=== PATIENT | male | born 1950 | race Caucasian/White ===

== ENCOUNTER 2016-09-30 10:37 | Emergency (ER) | payer BC ==
[~2016-09-30] VITALS: Ht 188 cm; Wt 119.8 kg
[~2016-09-30 10:37] MED LIST: ASPI81TA28 PO; ATOR80TA PO; GLYB5TAB8 PO; JNV100 PO; LISI40TA PO; METF-384 PO
[2016-09-30 10:40] VITALS: TEMP 36.7; Ht 188 cm; Wt 119.8 kg
[2016-09-30] MEDS ORDERED: SODIUM CHLORIDE 0.9% 1000ML 1,000 ML IV STA (11:04)
--- NOTE | 2016-09-30 11:22 | EMERGENCY ROOM VISIT NOTE ---
History First contact with patient: 10:54 Chief Complaint: RECTAL BLEEDING Stated Complaint: BLOOD IN STOOL Nursing Triage Summary: Pt reports seeing bright red blood in stool beginning last evening. Was unable to see PCP today, presents to ER. History of Present Illness The patient is a 65 year old male who presents to the Emergency Room with complaints of rectal bleeding. The patient states that last night he noticed bright red blood in his stool. He states that he felt like he had to have diarrhea. He does not have any pain or cramping. He states today he went to the bathroom several times and noticed red in the water. The patient states that he has had a few more bowel movements today and they all were bloody. He went to his family doctor's office that they could not see him today. He came to the emergency department for evaluation. The patient takes an aspirin but no other anticoagulants. The patient denies any pain. He denies any fevers or chills. He denies chest pain or trouble breathing. He denies nausea or vomiting. He denies any hematemesis. He denies ever having colonoscopy. He denies any history of rectal or gastrointestinal bleeding. He is a diabetic. He has a pacemaker. He also has chronic kidney disease. Review of Systems A 10 system review of systems was completed with positives and pertinent negatives listed in the HPI. Past Medical/Surgical History Medical Problems: (1) CKD (chronic kidney disease) (2) Diabetes (3) Hyperlipidemia (4) Hypertension (5) No pertinent past medical history (6) Pacemaker Family History Patient reports no known family medical history. Social History Smoking Status: Former Smoker Drug Use: none Marital Status: Occupation Status: employed Current/Historical Medications Scheduled Amlodipine (Norvasc), 10 MG PO DAILY Aspirin (Aspirin Ec), 81 MG PO DAILY Carvedilol (Coreg), 12.5 MG PO BIDM Furosemide (Lasix), 20 MG PO DAILY Insulin Glargine (Lantus Solostar), 40 SC QAM Lisinopril (Zestril), 40 MG PO DAILY Repaglinide (Prandin), 2 MG PO AC Sitagliptin (Januvia), 100 MG PO DAILY Allergies Coded Allergies: Procaine (Verified Allergy, Unknown, HIVES, 11/14/14) Sulfa Antibiotics (Verified Allergy, Unknown, HIVES, 6/2/15) Physical Exam Vital Signs Date Time Temp Pulse Resp B/P Pulse Ox O2 Delivery O2 Flow Rate FiO2 09/30/16 12:30 77 18 132/82 95 09/30/16 12:02 64 22 142/87 96 Room Air 09/30/16 11:09 60 16 163/89 96 Room Air 09/30/16 10:40 36.7 92 18 138/84 95 Room Air Physical Exam VITALS: Vitals are noted on the nurse's note and reviewed by myself. Vital signs stable. The patient is afebrile. He is not tachycardic, tachypneic or hypotensive. GENERAL: This is a 5-year-old male, in no acute distress, nondiaphoretic, well- developed well-nourished. SKIN: The skin was without rashes, erythema, edema, or bruising. There is no tenting of the skin. Capillary reflex less than 2 seconds. HEAD: Normocephalic atraumatic. EARS: The external ears are normal in appearance. EYES: Pupils equal round and reactive to light and accommodation. Conjunctivae without injection, sclerae without icterus. Extraocular movements intact. NOSE: Patent, turbinates without inflammation or discharge. No sinus tenderness. MOUTH: Mucous membranes moist. Tonsils are not enlarged. Pharynx without erythema or exudate. Uvula midline. Airway patent. Tongue does not deviate. NECK: Supple without nuchal rigidity. No JVD. HEART: Regular rate and rhythm without murmurs gallops or rubs. LUNGS: Clear to auscultation bilaterally without wheezes, rales or rhonchi. No retractions or accessory muscle use. ABDOMEN: Positive bowel sounds x 4. Soft, nontender, without masses or organomegaly. RECTAL: There is a scar noted in the area of the gluteal cleft. The patient reports a history of pressure ulcer. There are no obvious external hemorrhoids. The stool is brown but guaiac positive. MUSCULOSKELETAL: No muscle atrophy, erythema, or edema noted. Full range of motion in all extremities. Normal gait. Strength 5/5 throughout. NEURO: Patient was alert and oriented to person place and time. No focal neurological deficits. Medical Decision & Procedures Laboratory Results 09/30/16 11:05 Red Blood Count 4.65, Mean Corpuscular Volume 91.4, Mean Corpuscular Hemoglobin 30.1, Mean Corpuscular Hemoglobin Concent 32.9, Mean Platelet Volume 9.9, Neutrophils (%) (Auto) 72.1, Lymphocytes (%) (Auto) 16.9, Monocytes (%) (Auto) 7.6, Eosinophils (%) (Auto) 2.0, Basophils (%) (Auto) 0.6, Neutrophils # (Auto) 5.66, Lymphocytes # (Auto) 1.33, Monocytes # (Auto) 0.60, Eosinophils # (Auto) 0.16, Basophils # (Auto) 0.05 09/30/16 11:05 Test 09/30/16 11:05 09/30/16 12:00 White Blood Count 7.86 K/uL (4.8-10.8) Red Blood Count 4.65 M/uL (4.7-6.1) Hemoglobin 14.0 g/dL (14.0-18.0) Hematocrit 42.5 % (42-52) Mean Corpuscular Volume 91.4 fL (80-100) Mean Corpuscular Hemoglobin 30.1 pg (25-34) Mean Corpuscular Hemoglobin Concent 32.9 g/dl (32-36) Platelet Count 212 K/uL (130-400) Mean Platelet Volume 9.9 fL (7.4-10.4) Neutrophils (%) (Auto) 72.1 % Lymphocytes (%) (Auto) 16.9 % Monocytes (%) (Auto) 7.6 % Eosinophils (%) (Auto) 2.0 % Basophils (%) (Auto) 0.6 % Neutrophils # (Auto) 5.66 K/uL (1.4-6.5) Lymphocytes # (Auto) 1.33 K/uL (1.2-3.4) Monocytes # (Auto) 0.60 K/uL (0.11-0.59) Eosinophils # (Auto) 0.16 K/uL (0-0.5) Basophils # (Auto) 0.05 K/uL (0-0.2) RDW Standard Deviation 43.7 fL (36.4-46.3) RDW Coefficient of Variation 13.3 % (11.5-14.5) Immature Granulocyte % (Auto) 0.8 % Immature Granulocyte # (Auto) 0.06 K/uL (0.00-0.02) Prothrombin Time 10.9 SECONDS (9.0-12.0) Prothromb Time International Ratio 1.0 (0.9-1.1) Activated Partial Thromboplast Time 25.6 SECONDS (21.0-31.0) Partial Thromboplastin Ratio 1.0 Anion Gap 4.0 mmol/L (3-11) Est Creatinine Clear Calc Drug Dose 64.2 ml/min Estimated GFR () 52.0 Estimated GFR (Non- 44.9 BUN/Creatinine Ratio 22.2 (10-20) Calcium Level 9.3 mg/dl (8.5-10.1) Total Bilirubin 1.0 mg/dl (0.2-1) Aspartate Amino Transf (AST/SGOT) 22 U/L (15-37) Alanine Aminotransferase (ALT/SGPT) 26 U/L (12-78) Alkaline Phosphatase 70 U/L (45-117) Total Protein 8.5 gm/dl (6.4-8.2) Albumin 3.8 gm/dl (3.4-5.0) Globulin 4.7 gm/dl (2.5-4.0) Albumin/Globulin Ratio 0.8 (0.9-2) Lipase 156 U/L (73-393) Urine Color YELLOW Urine Appearance CLEAR (CLEAR) Urine pH 5.0 (4.5-7.5) Urine Specific [place] 1.009 (1.000-1.030) Urine Protein 1+ (NEG) Urine Glucose (UA) NEG (NEG) Urine Ketones NEG (NEG) Urine Occult Blood TRACE (NEG) Urine Nitrite NEG (NEG) Urine Bilirubin NEG (NEG) Urine Urobilinogen NEG (NEG) Urine Leukocyte Esterase NEG (NEG) Urine WBC (Auto) 0 /hpf (0-5) Urine RBC (Auto) 0-4 /hpf (0-4) Urine Hyaline Casts (Auto) 1-5 /lpf (0-5) Urine Epithelial Cells (Auto) 0-5 /lpf (0-5) Urine Bacteria (Auto) NEG (NEG) Medications Administered Medications (Trade) Dose Ordered Sig/Ralph Route Start Time Stop Time Status Last Admin Dose Admin Sodium Chloride (Nss 1000ml) 1,000 ml @ 125 mls/hr Q8H STAT IV 09/30/16 11:04 09/30/16 12:43 DC 09/30/16 11:10 125 MLS/HR ED Course The patient was seen and examined. Previous visits were reviewed. The patient does not have fever or leukocytosis. He does not have any significant electrolyte abnormalities. His BUN/creatinine creatinine are similar compared to previous. He does have a history of chronic kidney disease. Lipase was not elevated. INR was 1.0. Urinalysis was negative. The patient was gently hydrated with normal saline The patient presents to the emergency department with bright red rectal bleeding. The stool is guaiac positive. The patient has had bleeding since last night. He is hemodynamically stable. H&H is stable. He is not hypotensive. He does not have any complaints of pain and no abdominal tenderness on examination. The patient should follow-up with his family doctor for repeat H&H and referral to gastroenterology for probable colonoscopy. He should return with any lightheadedness, dizziness, chest pain, shortness of breath, abdominal pain or worsening bleeding. The case was discussed with Dr. He who agrees with the assessment and treatment plan Medical Decision DIFFERENTIAL DIAGNOSIS: Hepatitis, cholecystitis, cholangitis, biliary colic, pancreatitis, pneumonia, subdiaphragmatic abscess, appendicitis, inguinal hernia , nephrolithiasis, inflammatory bowel disease, mesenteric adenitis, peptic ulcer disease, GERD, gastritis, pancreatitis, myocardial infarction, pericarditis, ruptured aortic aneurysm, appendicitis, gastroenteritis, bowel obstruction, splenic infarct, diverticulitis, mesenteric ischemia, metabolic, peritonitis, among others. Impression Primary Impression: Rectal bleeding Departure Information Dispostion Home / Self-Care Condition GOOD Referrals Bill Alvarez M.D. (PCP) Laurel Hernandez M.D. Patient Instructions Bleeding Rectal, My [email or web address] Additional Instructions Contact your family doctor for a follow up appointment in 24-48 hours. You will likely need an outpatient colonoscopy Return with chest pain, trouble breathing, abdominal pain, lightheadedness or generalized worsening symptoms Stop the aspirin for 3 days
[2016-09-30 11:26] LABS: BASO % 0.6 %; BASO ABS # 0.05 K/uL (0-0.2); COMPLETE YES; HEMATOCRIT 42.5 % (42-52); IG% 0.8 %; LYMPH % 16.9 %; LYMPH ABS # 1.33 K/uL (1.2-3.4); MEAN CELL VOLUME 91.4 fL (80-100); MEAN CORPUSCULAR HEMOGLOBIN 30.1 pg (25-34); MEAN CORPUSCULAR HGB CONC 32.9 g/dl (32-36); MEAN PLATELET VOLUME 9.9 fL (7.4-10.4); MONO % 7.6 %; NEUT % 72.1 %; PLATELET COUNT 212 K/uL (130-400); RED BLOOD COUNT 4.65 M/uL (4.7-6.1); WHITE BLOOD COUNT 7.86 K/uL (4.8-10.8)
[2016-09-30] MEDS ORDERED: FURO-85 PO (11:31)
[2016-09-30] MEDS ORDERED: INSDGIPEN SC (11:31)
[2016-09-30] MEDS ORDERED: REPA2TAB12 PO (11:31)
[2016-09-30] MEDS ORDERED: AMLO-114 PO (11:31)
[2016-09-30] MEDS ORDERED: CARV12.5 PO (11:31)
[2016-09-30 11:35] LABS: PROTHROMBIN TIME (PATIENT) 10.9 SECONDS (9.0-12.0)
[2016-09-30 11:50] LABS: BUN/CREATININE RATIO 22.2 (10-20); CALCIUM 9.3 mg/dl (8.5-10.1); CREATININE 1.6 mg/dl (0.60-1.40); POTASSIUM 4.9 mmol/L (3.5-5.1)
[2016-09-30 11:53] LABS: ALB/GLOB RATIO 0.8 (0.9-2)
[2016-09-30 12:20] LABS: URINE APPEARANCE CLEAR (CLEAR); URINE BILIRUBIN NEG (NEG); URINE COLOR YELLOW; URINE EPITHELIAL CELL AUTO 0-5 /lpf (0-5); URINE NITRITE NEG (NEG); URINE SPECIFIC GRAVITY 1.009 (1.000-1.030); UROBILINOGEN NEG (NEG); ZZUR CULT IF INDIC CLEAN CATCH NO
[2016-09-30 12:30] VITALS: BP 132/82; PULSE 77; O2SAT 95
[2016-09-30 12:30] LABS: MANUAL MICROSCOPIC REQUIRED? NO; REVIEW REQ? NO
[2016-10-08] MEDS ORDERED: INSDGIPEN SC (08:13)
[2016-10-08] MEDS ORDERED: LISI40TA PO (08:13)
[2016-10-08] MEDS ORDERED: SITA100T3 PO (08:13)
[2016-10-08] MEDS ORDERED: AMLO-114 PO (08:13)
[2016-10-08] MEDS ORDERED: CARV12.5 PO (08:13)
[2016-10-08] MEDS ORDERED: REPA2TAB12 PO (08:13)
[2016-10-08] MEDS ORDERED: ASPCH81X PO (08:13)
[2016-10-08] MEDS ORDERED: FURO-85 PO (08:13)
[2016-10-08] MEDS ORDERED: BRIM0.2S OPL (08:18)
== END 2016-09-30 12:31 | disposition home or self-care (01) ==
LOC: C.EDB 10:38 → C.EDC 12:31
DX: K62.5 Hemorrhage of anus and rectum (principal); N18.9 Chronic kidney disease, unspecified; E11.9 Type 2 diabetes mellitus without complications; E78.5 Hyperlipidemia, unspecified; I10 Essential (primary) hypertension; Z87.891 Personal history of nicotine dependence; Z79.82 Long term (current) use of aspirin; Z79.4 Long term (current) use of insulin

== ENCOUNTER → 2016-10-01 | Outpatient (CLI) | payer BC ==
[~2016-10-01] MED LIST changes: +AMLO-114 PO; +ASPCH81X PO; -ATOR80TA PO; +BRIM0.2S OPL; +CARV12.5 PO; +FURO-85 PO; -GLYB5TAB8 PO; +INSDGIPEN SC; -METF-384 PO; +REPA2TAB12 PO; +SITA100T3 PO
[2016-10-01 12:44] LABS: BASO % 0.6 %; BASO ABS # 0.04 K/uL (0-0.2); COMPLETE YES; EOS % 1.9 %; HEMATOCRIT 39.7 % (42-52); IG% 0.6 %; LYMPH ABS # 1.45 K/uL (1.2-3.4); MEAN CELL VOLUME 92.1 fL (80-100); MEAN CORPUSCULAR HEMOGLOBIN 30.9 pg (25-34); MEAN CORPUSCULAR HGB CONC 33.5 g/dl (32-36); MEAN PLATELET VOLUME 10.4 fL (7.4-10.4); MONO % 7.5 %; NEUT % 68.4 %; PLATELET COUNT 210 K/uL (130-400); RED BLOOD COUNT 4.31 M/uL (4.7-6.1); WHITE BLOOD COUNT 6.92 K/uL (4.8-10.8)
[2016-10-01 13:01] LABS: BLOOD UREA NITROGEN 39 mg/dl (7-18); GLUCOSE 151 mg/dl (70-99)
[2016-10-01 13:02] LABS: ALB/GLOB RATIO 0.8 (0.9-2); ALKALINE PHOSPHATASE 63 U/L (45-117); ALT/SGPT 25 U/L (12-78); AST/SGOT 19 U/L (15-37); BUN/CREATININE RATIO 21.8 (10-20); CALCIUM 9.5 mg/dl (8.5-10.1); CARBON DIOXIDE 29 mmol/L (21-32); CHLORIDE 106 mmol/L (98-107); CHOLESTEROL 259 mg/dl (0-200); POTASSIUM 4.6 mmol/L (3.5-5.1); SODIUM 141 mmol/L (136-145); TRIGLYCERIDES 187 mg/dl (0-150); VERY LOW DENSITY LIPOPROT CALC 37 mg/dl
[2016-10-01 13:11] LABS: HDL CHOLESTEROL 37 mg/dl; LDL CHOLESTEROL CALCULATED 185 mg/dl
[2016-10-01 14:14] LABS: ESTIMATED AVERAGE GLUCOSE 151 mg/dl; HA1C FLAG Normal (Normal)
[2016-10-01 14:45] LABS: RATIO 1069.2 mcg/mg (0-30.0)
== END | disposition home or self-care (01) ==
LOC: C.LABBFT 09:43
PROVIDERS: ATTEND Internal Medicine
DX: E11.29 Type 2 diabetes mellitus with other diabetic kidney complication (principal); K62.5 Hemorrhage of anus and rectum

== ENCOUNTER → 2016-10-15 | Day surgery (SDC) | payer BC ==
[2016-10-08 08:14] VITALS: Ht 188 cm; Wt 121.4 kg
[~2016-10-15] VITALS: Ht 188 cm; Wt 121.4 kg
[~2016-10-15] MED LIST changes: -ASPI81TA28 PO; +FENTANYL CITRATE INJ 50 MCG/1 ML 2 ML VIAL ONE; -JNV100 PO; +LIDOCAINE HCL 2% 2 ML VIAL (20MG/ML) ONE; +PROPOFOL IV EMULSION 10 MG/ML 20 ML VIAL IV ONE; +SODIUM CHLORIDE 0.9% 500ML 500 ML IV ONE
--- NOTE | 2016-10-15 08:16 | Endo History and Physical ---
History & Physical Date of Service: October 15, 2016. Chief Complaint: Referring Physician: History of Present Illness 65 yo presenting for colonoscopy due to recent hematochezia-no drop in Hb, no alarm symptoms, no hx of colon ca screening. Past Medical History Diabetes, Hypertension Past Surgical History Hx Cardiac Surgery: No Hx Internal Defibrillator: No Hx Pacemaker: Yes ([employer]) Hx Abdominal Surgery: Yes (KAPIL) Hx of Implantable Prosthesis: No Hx Post-Op Nausea and Vomiting: No Hx Cancer Surgery: No Hx Thoracic Surgery: No Hx Orthopedic: No Hx Urinary Tract Surgery: No Social History Smoking Status: Former Smoker Hx Substance Use: No Hx Alcohol Use: Yes (RARELY) Allergies Coded Allergies: Pioglitazone (Verified Allergy, Unknown, LIVER FUNCTION PROBLEMS, 10/08/16) Procaine (Verified Allergy, Unknown, HIVES, 11/14/14) Sulfa Antibiotics (Verified Allergy, Unknown, HIVES, 11/14/14) Current Medications Reported Home Medications Medications Dose Route/Sig Max Daily Dose Days Date Category Combigan (Brimonidine Tartrate-Timolol M) 1 Leola Leola 1 Drop OPL BID 10/08/16 Reported Aspirin Chewable (Aspirin) 81 Mg Chew 81 Mg PO QAM 10/08/16 Reported Lasix (Furosemide) 20 Mg Tab 20 Mg PO QAM 10/08/16 Reported Coreg (Carvedilol) 12.5 Mg Tab 12.5 Mg PO BID 10/08/16 Reported Norvasc (Amlodipine Besylate) 10 Mg Tab 10 Mg PO QAM 10/08/16 Reported Zestril (Lisinopril) 40 Mg Tab 40 Mg PO QAM 10/08/16 Reported Lantus Solostar (Insulin Glargine) 100 Unit/Ml Inj 40 Units SC QAM 10/08/16 Reported Januvia (Sitagliptin Phosphate) 100 Mg Tab 100 Mg PO QAM 10/08/16 Reported Prandin (Repaglinide) 2 Mg Tab 2 Mg PO AC 10/08/16 Reported Vital Signs Weight (Kilograms): 121.36 Height (Feet): 6 Height (Inches): 2 Physical Exam General Appearance: WD/WN, no apparent distress Respiratory/Chest: Respiratory effort: no dyspnea Auscultation: breath sounds normal, CTA except as noted, no wheezing Cardiovascular: Apical Impulse: not displaced Heart Auscultation: RRR, normal S1, normal S2 Abdomen: Bowel Sounds: normal Inspection & Palpation: soft, non-distended Assessment and Plan 65 yo presenting for colonoscopy for rectal bleeding
--- NOTE | 2016-10-15 08:55 | Discharge Instructions ---
Endoscopy Patient Instructions Date / Procedure(s) Performed October 15, 2016. Colonoscopy Allergy Information Coded Allergies: Pioglitazone (Verified Allergy, Unknown, LIVER FUNCTION PROBLEMS, 10/08/16) Procaine (Verified Allergy, Unknown, HIVES, 11/14/14) Sulfa Antibiotics (Verified Allergy, Unknown, HIVES, 11/14/14) Discharge Date / Findings October 15, 2016. Two polyps-both completely removed Poor preparation Diverticuli Internal Hemorrhoids Medication Instructions Stopped Medication(s): last dose ASA week ago Thursday Provider Instructions Activity Restrictions - No exercising or heavy lifting for 24 hours. - Do not drink alcohol the day of the procedure. - Do not drive a car or operate machinery until the day after the procedure. - Do not make any important decisions or sign important papers in 24 hours after the procedure. Following Day: - Return to full activity which may include returning to work/school. Diet Start your diet with liquids and light foods (jello, soup, juice, toast). Then eat your usual diet if not nauseated. Treatment For Common After Affects For mild abdominal pain, bloating, or excessive gas: - Rest - Eat lightly - Lie on right side Follow-Up Information Follow-up with Dr. Bill Alvarez as scheduled Anesthesia Information What You Should Know You have had a procedure that required some medicine to reduce anxiety and discomfort. This treatment is called moderate sedation. After receiving the treatment, you may be sleepy, but you will be able to breathe on your own. The effects of the treatment may last for several hours. Follow these instructions along with Activity/Diet recommendations noted above: * Do NOT do anything where dizziness or clumsiness would be dangerous. * Rest quietly at home today, then you can be up and about tomorrow. * Have a responsible person stay with you the rest of today. * You may have had an I.V. today. If so, you may take the dressing off later today. Recommendations Call your doctor if: * Trouble breathing * Continuous vomiting for more than 24 hours * Temperature above 101 degrees * Severe abdominal pain or bloating * Pain not relieved by pain medicine ordered * There is increased drainage or redness from any incision * A large amount of rectal bleeding greater than 2-3 tablespoons. (If you had a polyp/s removed or have hemorrhoids, a small amount of blood - from the rectum is to be expected.) * You have any unanswered questions or concerns. IN THE EVENT OF A SERIOUS EMERGENCY, GO TO THE NEAREST EMERGENCY ROOM Your discharge instructions were prepared by provider Ryan Callejas. Patient Instructions Signature Page Nitin Garner Patient (or Guardian) Signature/Date: I have read and understand the instructions given to me by my caregivers. Caregiver/RN/Doctor Signature/Date: The above-named patient and/or guardian has received patient instructions on this date. + Original Patient Signature Page (only) stays with chart. Please make copy for patient.
--- NOTE | 2016-10-15 08:59 | GI REPORT ---
Procedure Date: 10/15/2016 8:29 AM Procedure: Colonoscopy Indications: Rectal bleeding Medicines: General Anesthesia Complications: No immediate complications. Estimated blood loss: None. Estimated Blood Loss: Estimated blood loss: none. Procedure: Pre-Anesthesia Assessment: - Pre-Anesthesia Assessment: - Prior to the procedure, a History and Physical was performed, and patient medications, allergies and sensitivities were reviewed. The patient's tolerance of previous anesthesia was reviewed. Please see Station X for complete details. - The risks and benefits of the procedure and the sedation options and risks were discussed with the patient. All questions were answered and informed consent was obtained. - Patient identification and proposed procedure were verified prior to the procedure by the physician and the nurse. The procedure was verified in the pre-procedure area in the procedure room. After obtaining informed consent, the endoscope was passed carefully and meticuously under direct vision and only advanced when the lumen was clearly identified, C02 insuflation was utilized throughout the entirity of the procedure. Throughout the procedure, the patient's blood pressure, pulse, and oxygen saturations were monitored continuously. After I obtained informed consent, the scope was passed under direct vision. Throughout the procedure, the patient's blood pressure, pulse, and oxygen saturations were monitored continuously. The scope was introduced through the anus and advanced to the cecum, identified by appendiceal orifice and ileocecal valve. The colonoscopy was performed without difficulty. The patient tolerated the procedure well. The quality of the bowel preparation was poor. Findings: Multiple small-mouthed diverticula were found in the sigmoid colon. The terminal ileum appeared normal. Internal hemorrhoids were found during retroflexion. A 4 mm polyp was found in the ascending colon. The polyp was sessile. The polyp was removed with a cold snare. Resection and retrieval were complete. A 5 mm polyp was found in the transverse colon. The polyp was sessile. The polyp was removed with a cold snare. Resection and retrieval were complete. Impression: - Preparation of the colon was poor. - Diverticulosis in the sigmoid colon. - The examined portion of the ileum was normal. - Internal hemorrhoids. - One 4 mm polyp in the ascending colon, removed with a cold snare. Resected and retrieved. - One 5 mm polyp in the transverse colon, removed with a cold snare. Resected and retrieved. Recommendation: - Await pathology results. - Repeat colonoscopy in 1 year because the bowel preparation was poor. - Return to referring physician as previously scheduled. Ryan Callejas MD 10/15/2016 8:59:11 AM This report has been signed electronically. Note Initiated On: 10/15/2016 8:29 AM I attest to the content of the Intraoperative Record and orders documented therein, exceptions below
--- NOTE | 2016-10-15 09:10 | Anesthesiology Progress Note ---
Anesthesia Post Op Note Date & Time October 15, 2016 at 09:10 Vital Signs Pain Intensity: 0 Vital Signs Past 12 Hours Date Time Temp Pulse Resp B/P Pulse Ox O2 Delivery O2 Flow Rate FiO2 10/15/16 08:58 61 20 86/51 95 Room Air 10/15/16 08:21 36.4 81 20 156/93 96 Room Air Notes Mental Status: alert / awake / arousable, participated in evaluation Pt Amnestic to Procedure: Yes Nausea / Vomiting: adequately controlled Pain: adequately controlled Airway Patency, RR, SpO2: stable & adequate BP & HR: stable & adequate Hydration State: stable & adequate Anesthetic Complications: no major complications apparent
[2016-10-15 09:29] VITALS: BP 146/68; PULSE 60; O2SAT 94
== END | disposition home or self-care (01) ==
LOC: C.GI 07:54
PROVIDERS: ATTEND Internal Medicine
DX: K62.5 Hemorrhage of anus and rectum (principal); K57.30 Diverticulosis of large intestine without perforation or abscess without bleeding; K64.8 Other hemorrhoids; D12.2 Benign neoplasm of ascending colon; D12.3 Benign neoplasm of transverse colon; Z88.2 Allergy status to sulfonamides; I10 Essential (primary) hypertension; E11.9 Type 2 diabetes mellitus without complications; Z90.49 Acquired absence of other specified parts of digestive tract; Z87.891 Personal history of nicotine dependence; Z68.34 Body mass index [BMI] 34.0-34.9, adult; E66.9 Obesity, unspecified; Z79.4 Long term (current) use of insulin; Z79.82 Long term (current) use of aspirin

== ENCOUNTER → 2016-11-11 | Outpatient (CLI) | payer BC ==
[~2016-11-11] MED LIST changes: -FENTANYL CITRATE INJ 50 MCG/1 ML 2 ML VIAL ONE; -LIDOCAINE HCL 2% 2 ML VIAL (20MG/ML) ONE; -PROPOFOL IV EMULSION 10 MG/ML 20 ML VIAL IV ONE; -SODIUM CHLORIDE 0.9% 500ML 500 ML IV ONE
[2016-11-11 17:51] LABS: HEMATOCRIT 38.2 % (42-52); MEAN CORPUSCULAR HEMOGLOBIN 30.4 pg (25-34); PLATELET COUNT 273 K/uL (130-400); RED BLOOD COUNT 4.15 M/uL (4.7-6.1); WHITE BLOOD COUNT 6.42 K/uL (4.8-10.8)
== END | disposition home or self-care (01) ==
LOC: C.LABBFT 14:31
PROVIDERS: ATTEND Internal Medicine
DX: E11.65 Type 2 diabetes mellitus with hyperglycemia (principal)

== ENCOUNTER → 2017-04-10 | Outpatient (CLI) | payer BC ==
[2017-04-10 16:52] LABS: BASO % 0.5 %; BASO ABS # 0.03 K/uL (0-0.2); COMPLETE YES; EOS % 2.3 %; HEMATOCRIT 38.3 % (42-52); IG% 0.5 %; LYMPH % 21.8 %; LYMPH ABS # 1.33 K/uL (1.2-3.4); MEAN CELL VOLUME 91.8 fL (80-100); MEAN CORPUSCULAR HEMOGLOBIN 31.9 pg (25-34); MEAN CORPUSCULAR HGB CONC 34.7 g/dl (32-36); MEAN PLATELET VOLUME 10.3 fL (7.4-10.4); MONO % 9.2 %; NEUT % 65.7 %; PLATELET COUNT 194 K/uL (130-400); RED BLOOD COUNT 4.17 M/uL (4.7-6.1); WHITE BLOOD COUNT 6.09 K/uL (4.8-10.8)
[2017-04-10 16:54] LABS: URINE APPEARANCE CLEAR (CLEAR); URINE BILIRUBIN NEG (NEG); URINE COLOR YELLOW; URINE EPITHELIAL CELL AUTO 0-5 /lpf (0-5); URINE NITRITE NEG (NEG); URINE PH 5.5 (4.5-7.5); URINE SPECIFIC GRAVITY 1.021 (1.000-1.030); UROBILINOGEN NEG (NEG); ZZUR CULT IF INDIC CLEAN CATCH NO
[2017-04-10 16:57] LABS: MANUAL MICROSCOPIC REQUIRED? NO; REVIEW REQ? NO
[2017-04-10 17:09] LABS: ALB/GLOB RATIO 0.8 (0.9-2); ALKALINE PHOSPHATASE 76 U/L (45-117); ALT/SGPT 25 U/L (12-78); AST/SGOT 20 U/L (15-37); BLOOD UREA NITROGEN 34 mg/dl (7-18); BUN/CREATININE RATIO 20.8 (10-20); CALCIUM 8.9 mg/dl (8.5-10.1); CARBON DIOXIDE 27 mmol/L (21-32); CHLORIDE 107 mmol/L (98-107); CHOLESTEROL 217 mg/dl (0-200); CHOLESTEROL/HDL RATIO 6.6; CREATININE 1.64 mg/dl (0.60-1.40); GLUCOSE 211 mg/dl (70-99); HDL CHOLESTEROL 33 mg/dl; LDL CHOLESTEROL CALCULATED 137 mg/dl; MAGNESIUM 2.4 mg/dl (1.8-2.4); POTASSIUM 4.7 mmol/L (3.5-5.1); SODIUM 140 mmol/L (136-145); TRIGLYCERIDES 237 mg/dl (0-150); VERY LOW DENSITY LIPOPROT CALC 47 mg/dl
[2017-04-10 17:14] LABS: PROSTATE SPECIFIC ANTIGEN 0.203 ng/ml (0.000-4.000)
[2017-04-10 17:16] LABS: CREATININE, URINE 73.9 mg/dl; URINE PROTIEN/CREAT RATIO 1.2 (0-0.2); URINE TOTAL PROTEIN 89.8 mg/dl (0-11.9)
[2017-04-11 06:51] LABS: ESTIMATED AVERAGE GLUCOSE 148 mg/dl; HA1C FLAG Normal (Normal)
== END | disposition home or self-care (01) ==
LOC: C.LABBFT 14:07
PROVIDERS: ATTEND Internal Medicine
DX: N18.3 Chronic kidney disease, stage 3 (moderate) (principal); E11.22 Type 2 diabetes mellitus with diabetic chronic kidney disease; Z12.5 Encounter for screening for malignant neoplasm of prostate

== ENCOUNTER → 2017-05-19 | Outpatient (CLI) | payer BC ==
--- NOTE | 2017-05-19 09:25 | DIAGNOSTIC IMAGING REPORT ---
R HAND MIN 3 VIEWS ROUTINE, L HAND MIN 3 VIEWS ROUTINE HISTORY: 66 years-old Male M54.2 [id number] bilateral hand pain without reported trauma COMPARISON: None available TECHNIQUE: 3 views of the bilateral hands for a total of 6 images FINDINGS: LEFT: Vascular calcifications are noted. There is no acute fracture or dislocation. Soft tissues are unremarkable without opaque foreign body. Mild radiocarpal, first carpometacarpal and multidigit interphalangeal degenerative changes are noted. There are questioned subperiosteal resorptive changes involving the radial aspects of the third and fourth middle phalanges at the distal metaphyseal regions, nicely seen on the oblique view. There is mild periarticular demineralization. Subcortical cystic changes of the carpal bones. RIGHT: Moderate first carpometacarpal osteoarthritis with mild radial subluxation of the metacarpal. Subcortical cystic changes are seen within the carpal bones. Mild radiocarpal and multidigit interphalangeal degenerative changes. No acute fracture or dislocation. Peripheral vascular disease. IMPRESSION: 1. No acute fracture or dislocation identified involving either hand. 2. Mostly mild multifocal degenerative changes as above. 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 3. Questioned subtle subperiosteal resorptive changes involving the left third and fourth proximal phalanges as above which can be seen in cases of hyperparathyroidism. 4. Peripheral vascular disease. The above report was generated using voice recognition software. It may contain grammatical, syntax or spelling errors. Electronically signed by: Te Mccoy M.D. 05/19/2017 9:23 AM Dictated Date/Time: 05/19/2017 9:16 AM
--- NOTE | 2017-05-19 10:17 | DIAGNOSTIC IMAGING REPORT ---
CERVICAL SPINE 4 VIEWS CLINICAL HISTORY: Cervicalgia. FINDINGS: AP, lateral, swimmer's, and odontoid views of the cervical spine are obtained. No prior studies are available for comparison at the time of dictation. The skeletal structures are osteopenic. There is no radiographic evidence of fracture or subluxation. The odontoid process and lateral masses appear intact on the open-mouth view. The atlantodental articulation appears maintained noting productive degenerative change. Vertebral body height and alignment are maintained. There is straightening of the cervical lordosis. The spinolaminar line is preserved. Anterior osteophytes are seen throughout. The spinous processes appear intact. Moderate disc space narrowing is seen at C4-C5 and C6-C7. Mild disc space narrowing is seen at C3-C4 and C5-C6. Small posterior disc osteophyte complexes at C5-C6 and C6-C7 may contribute to mild acquired compromise of the central canal. Multilevel facet arthropathy is seen on the frontal view. The prevertebral soft tissues are normal in appearance. Advanced atherosclerotic calcification is noted in the carotid bulbs. Pacemaker leads are seen in the right axillary region. The patient is edentulous. IMPRESSION: 1. No acute bony abnormality is seen involving the cervical spine. 2. Osteopenia and spondylotic change as above. Dictated: 05/19/2017 10:04 AM Transcribed: 05/19/2017 10:17 AM Jack Electronically signed by: Patrick Randle M.D. 05/19/2017 10:18 AM Dictated Date/Time: 05/19/2017 10:04 AM
[2017-05-19 10:29] LABS: RHEUMATOID FACTOR < 10.0 U/mL (0-15); TOTAL IRON BINDING CAPACITY 216 mcg/dl (250-450)
== END | disposition home or self-care (01) ==
LOC: C.RAD1850 08:49
PROVIDERS: ATTEND Internal Medicine Rheumatology
DX: M54.2 Cervicalgia (principal); M79.641 Pain in right hand; M79.642 Pain in left hand; R20.0 Anesthesia of skin; I73.9 Peripheral vascular disease, unspecified

== ENCOUNTER → 2017-06-05 | Outpatient (CLI) | payer BC ==
[2017-06-11 02:43] LABS: ANTI-CENTROMERE AB <1.0 NEG AI (<1.0 NEG); ANTI-SS-A <1.0 NEG AI (<1.0 NEG); ANTI-SS-B <1.0 NEG AI (<1.0 NEG); DNA ds CRITHIDIA NEGATIVE (NEGATIVE); Rheumatoid Factor < 14 IU/ML (<14); Sm Antibody <1.0 NEG AI (<1.0 NEG)
== END | disposition home or self-care (01) ==
LOC: C.LAB1850 12:19
PROVIDERS: ATTEND Internal Medicine Rheumatology
DX: M79.641 Pain in right hand (principal); M79.642 Pain in left hand

== ENCOUNTER 2017-08-18 16:31 | Emergency (ER) | payer OTHER, BC ==
[~2017-08-18] VITALS: Ht 175.3 cm; Wt 123.0 kg
[2017-08-18 16:33] VITALS: TEMP 37.3; Ht 175.3 cm; Wt 123.0 kg
[2017-08-18] MEDS ORDERED: ACETAMINOPHEN 500 MG TAB PO STA (17:01)
[2017-08-18] MEDS ORDERED: REPA1TAB10 PO (17:06)
[2017-08-18] MEDS ORDERED: ASPI81TA28 PO (17:06)
[2017-08-18] MEDS ORDERED: LPT40 PO (17:06)
[2017-08-18] MEDS ORDERED: SITA1TAB27 PO (17:06)
[2017-08-18] MEDS ORDERED: LSX20 PO (17:06)
[2017-08-18] MEDS ORDERED: CRG125 PO (17:06)
[2017-08-18] MEDS ORDERED: NRV/10 PO (17:06)
[2017-08-18] MEDS ORDERED: LSN40 PO (17:06)
[2017-08-18] MEDS ORDERED: ERGO500011 PO (17:06)
--- NOTE | 2017-08-18 17:09 | EMERGENCY ROOM VISIT NOTE ---
History First contact with patient: 16:36 Chief Complaint: RIB PAIN Stated Complaint: FELL R SIDE RIB PAIN History of Present Illness The patient is a 66 year old male who presents to the Emergency Room with complaints of right-sided rib pain after a fall. The patient states that approximately 4 hours ago, he tripped in the mud and fell, striking his right posterior ribs on a boner meat. He reports pain which is worse with movement, coughing or sneezing. He rates his discomfort a 7/10. He has not taken any medication for pain. He denies any shortness of breath or abdominal pain. He denies hitting his head or sustaining any other injuries. Review of Systems A complete 10 point review of systems was reviewed with the patient with pertinent positives and negatives as per history of present illness. All else were negative. Past Medical/Surgical History Medical Problems: (1) CKD (chronic kidney disease) (2) Diabetes (3) Hyperlipidemia (4) Hypertension (5) No pertinent past medical history (6) Pacemaker Surgical Problems: (1) History of cholecystectomy Family History Patient reports no known family medical history. Social History Smoking Status: Former Smoker Alcohol Use: none Drug Use: none Marital Status: Housing Status: lives with family Occupation Status: retired Current/Historical Medications Scheduled Amlodipine Besylate (Amlodipine Besylate), 10 MG PO QAM Aspirin (Aspirin Ec), 81 MG PO QAM Atorvastatin (Lipitor), 40 MG PO HS Brimonidine Tartrate-Timolol M (Combigan), 1 DROP OPL BID Carvedilol (Carvedilol), 12.5 MG PO BID Ergocalciferol (Vitamin D 68861 Unit), 50,000 INTER.UNIT PO MONTHLY Furosemide (Furosemide), 20 MG PO QAM Insulin Glargine (Lantus Solostar), 40 UNITS SC QAM Lisinopril (Lisinopril), 40 MG PO QAM Repaglinide (Repaglinide), 2 MG PO AC Sitagliptin (Januvia), 100 MG PO QAM Scheduled PRN Hydrocodone/Acetaminophen 5MG/325MG ([place] 5MG/325MG), 1-2 TABLET PO Q4H PRN for Pain Physical Exam Vital Signs Date Time Temp Pulse Resp B/P (MAP) Pulse Ox O2 Delivery O2 Flow Rate FiO2 08/18/17 18:30 64 16 110/64 94 08/18/17 16:33 37.3 84 20 158/79 95 Room Air Physical Exam VITALS: Vitals are noted on the nurse's note and reviewed by myself. Vital signs stable. GENERAL: This is a 66-year-old male, in no acute distress, nondiaphoretic, well- developed well-nourished. SKIN: The skin was without rashes. HEART: Regular rate and rhythm without murmurs gallops or rubs. LUNGS: Clear to auscultation bilaterally without wheezes, rales or rhonchi. ABDOMEN: Soft, nontender to palpation. MUSCULOSKELETAL: There is reproducible tenderness over the right posterior ribs. Otherwise no tenderness on exam. NEURO: Patient was alert and oriented to person place and time. Medical Decision & Procedures ER Provider Diagnostic Interpretation: R RIBS UNILATERAL WITH PA CHEST FINDINGS: Right subclavian pacer with leads to the right atrium and right ventricular apex. Atherosclerosis of aortic arch. Cardiac silhouette mildly enlarged. Pulmonary vascular prominence. Eventration of the right hemidiaphragm. No focal opacity. No large effusion or pneumothorax. Degenerative changes of the right glenohumeral joint. No displaced right rib fracture. Surgical clips project over the right upper quadrant, possibly cholecystectomy clips. IMPRESSION: 1. No displaced right rib fracture. 2. Cardiomegaly with volume overload. No anbil pulmonary edema. Medications Administered Medications (Trade) Dose Ordered Sig/Ralph Route Start Time Stop Time Status Last Admin Dose Admin Acetaminophen (Tylenol Tab) 1,000 mg NOW STAT PO 08/18/17 17:01 08/18/17 17:02 DC 08/18/17 17:12 1,000 MG Acetaminophen/ Hydrocodone Bitart ([place] 5/325mg Home Pack) 1 homepack UD ONCE PO 08/18/17 18:15 08/18/17 18:16 DC 08/18/17 18:28 1 HOMEPACK Medical Decision Differential diagnosis includes rib fracture, contusion, sprain, hemothorax, pneumothorax, among others. The patient was evaluated as above. X-ray of the right ribs with PA chest was performed and read by radiology with no obvious fracture. Patient has no abdominal tenderness, shortness of breath, or chest pain. Chest x-ray did show some cardiomegaly and fluid overload but no nabil pulmonary edema. Patient does state that he takes a diuretic. I recommended that he follow-up with his primary care provider this week for recheck. He was given Mansfield and incentive spirometer. He verbalized understanding of my assessment and treatment plan and was discharged home in good condition. The patient was independently evaluated by Dr. Ingram, ED attending physician, who agreed with my assessment and treatment plan. [facility] Drug Monitoring Program Search Results: patient reviewed within database, no issues identified Medication Reconcilliation Current Medication List: was personally reviewed by me Blood Pressure Screening Patient's blood pressure: Normal blood pressure Impression Primary Impression: Rib injury Departure Information Dispostion Home / Self-Care Condition GOOD Prescriptions Hydrocodone/Acetaminophen 5MG/325MG ([place] 5MG/325MG) Tab 1-2 TABLET PO Q4H Y for Pain, #15 TAB For Initial Treatment Prov: Jojo Rosario .KAREN 08/18/17 Referrals Bill Alvarez M.D. (PCP) Patient Instructions Incentive Spirometer Ri, [facility] Additional Instructions You have been treated in the Emergency Department for a Rib injury. You have been prescribed [place] to be used for pain control. This is a narcotic medication. You cannot drive or consume alcohol while on this medicine. This medicine should only be used for pain that cannot be controlled with over-the- counter pain medicines. This can sometimes cause constipation. You may take a stool softener while taking this medicine. For pain control, you can use the following ulmp-dka-lulckhy medicines (if >12 yo): - Regular strength (325mg/tab) Tylenol (acetaminophen) 2 tabs every 4-6 hours as needed. Do not exceed 12 tablets in a 24 hour period. Avoid taking more than 4 grams (4000 mg) of Tylenol per day. This includes any other sources of acetaminophen you may take on a regular basis. - Regular strength (200 mg/tab) Advil (ibuprofen) 1-2 tabs every 4-6 hours as needed. Do not exceed a dose of 3200 mg per day. If this is an acute injury, ice can be applied to the area of pain for the first 3 days to help decrease pain and inflammation. After the first 3 days, a heating pad can be used over the area for continued soothing relief. To minimize your discomfort, you can hug a pillow while coughing or sneezing. Use the incentive spirometer as directed. You should schedule a follow-up appointment in 2-3 days with your Primary Care Provider for further evaluation and treatment. Return to the Emergency Department if your current symptoms worsen despite treatment course outlined above, or if you develop any of the following symptoms : intractable pain despite aforementioned treatment course, development of a wet cough, bloody cough, fever, chills, or increased shortness of breath.
--- NOTE | 2017-08-18 17:46 | DIAGNOSTIC IMAGING REPORT ---
R RIBS UNILATERAL WITH PA CHEST CLINICAL HISTORY: 66 years-old Male presenting with right posterior rib pain, fall. TECHNIQUE: Frontal and oblique views of the right ribs as well as PA view of the chest were obtained. COMPARISON: Chest x-ray from 12/18/2014. FINDINGS: Right subclavian pacer with leads to the right atrium and right ventricular apex. Atherosclerosis of aortic arch. Cardiac silhouette mildly enlarged. Pulmonary vascular prominence. Eventration of the right hemidiaphragm. No focal opacity. No large effusion or pneumothorax. Degenerative changes of the right glenohumeral joint. No displaced right rib fracture. Surgical clips project over the right upper quadrant, possibly cholecystectomy clips. IMPRESSION: 1. No displaced right rib fracture. 2. Cardiomegaly with volume overload. No nabil pulmonary edema. Electronically signed by: Uriel Cuellar M.D. 08/18/2017 5:45 PM Dictated Date/Time: 08/18/2017 5:42 PM
--- NOTE | 2017-08-18 18:02 | EMERGENCY ROOM VISIT NOTE ---
ED Visit Note First contact with patient: 16:36 This Patient was discussed with the physician early childhood teacher assistant, Jojo Rosario PA-C. The pertinent historical and physical exam findings were confirmed. I agree with the studies ordered and with the interpretations of these studies. I agree with the disposition and care plan.
[2017-08-18] MEDS ORDERED: HYDR-5688 PO (18:09)
[2017-08-18] MEDS ORDERED: NORCO 5/325MG HOME PACK PO ONE (18:15)
[2017-08-18 18:30] VITALS: BP 110/64; PULSE 64; O2SAT 94
== END 2017-08-18 18:30 | disposition home or self-care (01) ==
LOC: C.EDB 16:32 → C.EDD 18:30
DX: S29.9XXA Unspecified injury of thorax, initial encounter (principal); E11.9 Type 2 diabetes mellitus without complications; E78.5 Hyperlipidemia, unspecified; I12.9 Hypertensive chronic kidney disease with stage 1 through stage 4 chronic kidney disease, or unspecified chronic kidney disease; N18.9 Chronic kidney disease, unspecified; Z79.4 Long term (current) use of insulin; Z79.82 Long term (current) use of aspirin; Z79.899 Other long term (current) drug therapy; W01.0XXA Fall on same level from slipping, tripping and stumbling without subsequent striking against object, initial encounter; Z87.891 Personal history of nicotine dependence

== ENCOUNTER → 2017-09-10 | Outpatient (CLI) | payer OTHER, BC ==
[~2017-09-10] MED LIST changes: -AMLO-114 PO; -ASPCH81X PO; +ASPI81TA28 PO; -CARV12.5 PO; +CRG125 PO; +ERGO500011 PO; -FURO-85 PO; +HYDR-5688 PO; -LISI40TA PO; +LPT40 PO; +LSN40 PO; +LSX20 PO; +NRV/10 PO; +REPA1TAB10 PO; -REPA2TAB12 PO; -SITA100T3 PO; +SITA1TAB27 PO
[2017-09-10 12:41] LABS: BASO % 0.5 %; BASO ABS # 0.03 K/uL (0-0.2); EOS ABS # 0.18 K/uL (0-0.5); HEMATOCRIT 38.4 % (42-52); HEMOGLOBIN 12.9 g/dL (14.0-18.0); IG# 0.04 K/uL (0.00-0.02); LYMPH % 22.5 %; LYMPH ABS # 1.37 K/uL (1.2-3.4); MEAN CELL VOLUME 91.9 fL (80-100); MEAN CORPUSCULAR HEMOGLOBIN 30.9 pg (25-34); MEAN CORPUSCULAR HGB CONC 33.6 g/dl (32-36); MEAN PLATELET VOLUME 10.5 fL (7.4-10.4); MONO % 10.4 %; MONO ABS # 0.63 K/uL (0.11-0.59); NEUT % 62.9 %; NEUT ABS # 3.83 K/uL (1.4-6.5); PLATELET COUNT 188 K/uL (130-400); RED CELL DISTRIBUTION WIDTH CV 12.7 % (11.5-14.5); RED CELL DISTRIBUTION WIDTH SD 42.7 fL (36.4-46.3); WHITE BLOOD COUNT 6.08 K/uL (4.8-10.8)
[2017-09-10 12:51] LABS: ALBUMIN 3.6 gm/dl (3.4-5.0); BLOOD UREA NITROGEN 51 mg/dl (7-18); CARBON DIOXIDE 29 mmol/L (21-32); CREATININE 2.16 mg/dl (0.60-1.40); GLUCOSE 140 mg/dl (70-99); POTASSIUM 4.3 mmol/L (3.5-5.1); SODIUM 137 mmol/L (136-145)
[2017-09-10 12:52] LABS: PHOSPHORUS 3.5 mg/dl (2.5-4.9)
== END | disposition home or self-care (01) ==
LOC: C.LABBFT 10:22
PROVIDERS: ATTEND Internal Medicine Nephrology
DX: N18.3 Chronic kidney disease, stage 3 (moderate) (principal)